=== PATIENT | female | born 1990 | race Caucasian/White ===

== ENCOUNTER 2017-09-17 16:40 | Emergency (ER) | payer SELFPAY ==
[2017-09-17 16:50] VITALS: BMI 21.2
[2017-09-17] MEDS ORDERED: DiphenhydrAMINE 50 mg/ml Inj IVP STA (17:13)
[2017-09-17] MEDS ORDERED: Sodium Chloride 0.9% 1,000 ML IV ONE (17:14)
[2017-09-17] MEDS ORDERED: Sodium Chloride 0.9% 1,000 ML ONE (17:30)
[2017-09-17] MEDS ORDERED: DiphenhydrAMINE 50 mg/ml Inj ONE (17:30)
--- NOTE | 2017-09-17 18:01 | C.PDOC ---
History Of Present Illness 27-year-old female, presents to the emergency department with complaints of headache that started this morning. Patient has a Hx of migraine and reports this feels similar. She notes associated light sensitivity and dizziness like the room is spinning around her. She denies any nausea/vomiting, numbness/ weakness, facial droop, sensory changes, speech changes, visual changes, extremity weakness or any other associated symptoms. No other complaints at this time. Time Seen by Provider: 09/17/17 17:06 Chief Complaint (Nursing): Dizziness/Lightheaded History Per: Patient History/Exam Limitations: no limitations Onset/Duration Of Symptoms: Hrs Current Symptoms Are (Timing): Still Present Past Medical History Reviewed: Historical Data, Nursing Documentation, Vital Signs Family History: States: No Known Family Hx - Social History Hx Alcohol Use: No Hx Substance Use: No - Immunization History Hx Tetanus Toxoid Vaccination: No Hx Influenza Vaccination: No Hx Pneumococcal Vaccination: No Review Of Systems Except As Marked, All Systems Reviewed And Found Negative. Constitutional: Negative for: Fever, Chills Cardiovascular: Negative for: Chest Pain, Palpitations Respiratory: Negative for: Shortness of Breath Gastrointestinal: Negative for: Nausea, Vomiting Musculoskeletal: Negative for: Neck Pain, Back Pain Neurological: Positive for: Headache. Negative for: Weakness, Numbness, Dizziness Physical Exam - Physical Exam Appears: Non-toxic, No Acute Distress Skin: Warm, Dry, No Rash Head: Atraumatic, Normacephalic Eye(s): bilateral: Normal Inspection, PERRL, EOMI Nose: Normal Oral Mucosa: Moist Lips: Normal Appearing Neck: Normal ROM Chest: Symmetrical Cardiovascular: Rhythm Regular, No Murmur Respiratory: Normal Breath Sounds, No Accessory Muscle Use Extremity: Normal ROM Neurological/Psych: Oriented x3, Normal Speech, Normal Cognition, Normal Cranial Nerves, Normal Motor, Normal Sensation, Normal Reflexes, Other (No focal deficit.) Disposition Counseled Patient/Family Regarding: Diagnosis, Need For Followup, Rx Given - Disposition Referrals: [facility] at [facility] [Outside] Disposition: HOME/ ROUTINE Disposition Time: 18:35 Condition: STABLE Additional Instructions: FOLLOW UP WITH YOUR DOCTOR/CLINIC IN 1-2 DAYS USE MEDICATION NEEDED RETURN TO EMERGENCY ROOM IF SYMPTOMS WORSEN SEGUIMIENTO CON MARSHALL MDICO / CLNICA EN 1-2 MYLES USE MEDICAMENTOS SEGN SEA NECESARIO REGRESE AL PAIGE DE EMERGENCIA SI LOS SNTOMAS EMPEORAN Prescriptions: Acetaminophen/Butalbital/Caf [Fioricet] 1 tab PO TID PRN #20 tab PRN Reason: Headache Instructions: Migraine Headache (ED) Forms: [employer] (Maori) Print Language: THAI - Clinical Impression Clinical Impression: Migraine headache - Scribe Statement The provider has reviewed the documentation as recorded by the Scribe (Sherri Tovar) All medical record entries made by the Scribe were at my direction and personally dictated by me. I have reviewed the chart and agree that the record accurately reflects my personal performance of the history, physical exam, medical decision making, and the department course for this patient. I have also personally directed, reviewed, and agree with the discharge instructions and disposition.
[2017-09-17 18:42] VITALS: BP 100/67; PULSE 76; RESP 16; TEMP 98.2; O2SAT 100
== END 2017-09-17 18:57 | disposition home or self-care (01) ==
LOC: C.ER 16:40
DX: G43.909 Migraine, unspecified, not intractable, without status migrainosus (principal)
CPT/HCPCS: 82948; 96361; 96374; 96375; 99285; J1200; J2765; J7040

== ENCOUNTER 2018-08-05 22:54 | Emergency (ER) | payer SELFPAY ==
[2018-08-05 22:55] VITALS: BMI 22.1
--- NOTE | 2018-08-06 | C.PDOC ---
History Of Present Illness 28 year old female presents to the ER with a complaint of palpitations that began tonight after taking sumatripan. Denies fever, chills, chest pain, or SOB. Chief Complaint (Nursing): Palpitations History Per: Patient History/Exam Limitations: no limitations Onset/Duration Of Symptoms: Hrs Current Symptoms Are (Timing): Still Present Recent travel outside of the [place]: No Past Medical History Reviewed: Historical Data, Nursing Documentation, Vital Signs Vital Signs: Last Vital Signs Temp 98.7 F 08/05/18 23:45 Pulse 91 H 08/05/18 23:45 Resp 20 08/05/18 23:45 BP 114/82 08/05/18 23:45 Pulse Ox 100 08/05/18 23:45 - Medical History PMH: Migraine Family History: States: Unknown Family Hx - Social History Hx Alcohol Use: No Hx Substance Use: No - Immunization History Hx Tetanus Toxoid Vaccination: No Hx Influenza Vaccination: No Hx Pneumococcal Vaccination: No Review Of Systems Constitutional: Negative for: Fever, Chills Cardiovascular: Positive for: Palpitations. Negative for: Chest Pain Respiratory: Negative for: Cough, Shortness of Breath Gastrointestinal: Negative for: Nausea, Vomiting Neurological: Negative for: Weakness, Numbness Physical Exam - Physical Exam Appears: Non-toxic Skin: Normal Color, Warm, Dry Head: Atraumatic, Normacephalic Eye(s): bilateral: Normal Inspection Oral Mucosa: Moist Neck: Normal, Supple Chest: Symmetrical, No Tenderness Cardiovascular: Rhythm Regular Respiratory: Normal Breath Sounds, No Rales, No Rhonchi, No Wheezing Gastrointestinal/Abdominal: Soft, No Tenderness Back: No CVA Tenderness Neurological/Psych: Oriented x3, Normal Speech ED Course And Treatment - Laboratory Results Result Diagrams: 08/06/18 00:05 08/06/18 00:05 O2 Sat by Pulse Oximetry: 100 (room air) Pulse Ox Interpretation: Normal Progress Note: EKG and blood work ordered. Xanax administered. Disposition Counseled Patient/Family Regarding: Diagnosis - Disposition Referrals: [facility] [Outside] Disposition: HOME/ ROUTINE Disposition Time: 02:00 Condition: STABLE Additional Instructions: stopped taking sumatripan Forms: [employer] (Namibian), Gen Discharge Inst Beninese - POA Present On Arrival: None - Clinical Impression Clinical Impression: Palpitations, Medication adverse effect - Scribe Statement The provider has reviewed the documentation as recorded by the Scribe Jose Lombardi All medical record entries made by the Scribe were at my direction and personally dictated by me. I have reviewed the chart and agree that the record accurately reflects my personal performance of the history, physical exam, medical decision making, and the department course for this patient. I have also personally directed, reviewed, and agree with the discharge instructions and disposition.
[2018-08-06 00:23] LABS: BASO % 0.8 % (0.0-2.0); EOS # 0.1 K/uL (0.0-0.7); EOS % 0.9 % (0.0-4.0); HEMOGLOBIN 13.6 g/dL (11.0-16.0); LYMPH # 2.3 K/uL (1.0-4.3); LYMPH % 35.7 % (20.0-40.0); MEAN CELL VOLUME 84.1 fL (81.0-99.0); MEAN CORPUSCULAR HEMOGLOBIN 28.2 pg (27.0-31.0); MEAN CORPUSCULAR HGB CONC 33.6 g/dL (33.0-37.0); MEAN PLATELET VOLUME 9.6 fL (7.2-11.7); MONO # 0.3 K/uL (0.0-0.8); NEUT # 3.8 K/uL (1.8-7.0); NEUT % 57.6 % (50.0-75.0); RBC 4.81 Mil/uL (3.80-5.20); RED CELL DISTRIBUTION WIDTH 13.6 % (11.5-14.5); WHITE BLOOD COUNT 6.5 K/uL (4.8-10.8)
[2018-08-06 00:40] LABS: ALB/GLOB RATIO 1.4 (1.0-2.1); ALBUMIN 4.8 g/dL (3.5-5.0); ALT/SGPT 14 U/L (9-52); AST/SGOT 18 U/L (14-36); BLOOD UREA NITROGEN 14 mg/dL (7-17); CALCIUM 9.5 mg/dl (8.6-10.4); GFR NON-AFRICAN AMERICAN > 60
[2018-08-06 02:14] VITALS: BP 109/78; PULSE 88; RESP 14; TEMP 98.8; O2SAT 95
--- NOTE | 2018-08-06 11:07 | CARD ---
APPROVED REPORT Date of service: 08/05/2018 EKG Measurement Heart [id number] OH [id number] [id number] <Conclusion> Normal sinus rhythm Possible Left atrial enlargement Borderline ECG
== END 2018-08-06 02:18 | disposition home or self-care (01) ==
LOC: C.ER 22:54
DX: R00.2 Palpitations (principal); T39.8X5A Adverse effect of other nonopioid analgesics and antipyretics, not elsewhere classified, initial encounter